=== PATIENT | male | born 1945 | race Caucasian/White ===

== ENCOUNTER 2022-07-06 15:16 | Inpatient (IN) | payer OTHER, MEDICAID ==
[~2022-07-06] VITALS: Ht 167.6 cm; Wt 76.2 kg
[2022-07-06 15:28] VITALS: BP 128/65
--- NOTE | 2022-07-06 16:00 | NUR ---
BIBA FROM HOME C/O 04/16 LEFT CHEAST PAIN , RIGHT EYE PAIN X TODAY. BLOOD SUGAR 157 AT THIS TIME. PMH: HTN, DM
--- NOTE | 2022-07-06 18:10 | NUR ---
BIB GROUND WATER PUMP INSTALLER TO ER BED 4 FROM XRAY
[2022-07-06 18:40] LABS: BASOPHILS % (AUTO) 0.7 % (0.0-2.0); EOSINOPHILS # (AUTO) 0.2 K/uL (0-0.4); EOSINOPHILS % (AUTO) 2.8 % (0.0-4.0); HEMOGLOBIN 10.2 g/dL (12.0-18.0); LYMPHOCYTES # (AUTO) 0.6 K/uL (2.0-11.5); LYMPHOCYTES % (AUTO) 9.3 % (20.5-51.1); MEAN CORPUSCULAR HEMOGLOBIN 31 pg (27-31); MEAN CORPUSCULAR HGB CONC 34 g/dL (33-37); MONOCYTES # (AUTO) 0.4 K/uL (0.8-1.0); MONOCYTES % (AUTO) 5.9 % (1.7-9.3); NEUTROPHILS # (AUTO) 5.7 K/uL (1.8-7.7); NEUTROPHILS % (AUTO) 81.3 % (42.2-75.2); PLATELET COUNT (AUTO) 260 K/uL (140-450); RED BLOOD CELL COUNT(AUTO) 3.34 MIL/uL (4.20-6.10); RED CELL DISTRIBUTION WIDTH 14.8 % (11.6-13.7)
[2022-07-06 18:56] LABS: PROTHROMBIN TIME 10.1 secs (10.8-13.4)
[2022-07-06 18:59] LABS: ALBUMIN 3.4 g/dL (3.4-5.0); ANION GAP 14.7 (8-16); ASPARTATE AMINOTRANSFERASE 20 U/L (15-37); CARBON DIOXIDE 22.8 mmol/L (21-32); CHLORIDE 104 mmol/L (98-107); CREATININE 3.6 mg/dL (0.6-1.3); GLUCOSE 158 mg/dL (74-106); POTASSIUM 5.5 mmol/L (3.5-5.1); SODIUM SERUM 136 mmol/L (136-145); TOTAL BILIRUBIN 0.5 mg/dL (0.0-1.0)
[2022-07-06 19:02] LABS: UREA NITROGEN, BLOOD 62 mg/dL (7-18)
[2022-07-06] MEDS ORDERED: NACL 0.9% 1,000 ML IV ONE (19:10)
--- NOTE | 2022-07-06 19:20 | NUR ---
IV ESTABLISHED TO RIGHT AC WITH 20G.
--- NOTE | 2022-07-06 19:22 | NUR ---
GAVE REPORT TO TRUPTI MONROY
[2022-07-06] MEDS ORDERED: CALCIUM GLUCONATE 10% 1,000 MG in NACL 0.9% 50 ML IV ONE (19:30)
[2022-07-06] MEDS ORDERED: SODIUM POLYSTYRENE 15 GM/60 ML UDBTL PO ONE (19:30)
[2022-07-06] MEDS ORDERED: CALCIUM GLUC 1 GM/50 mL NS BAG 0 ML IV ONE (19:43)
[2022-07-06] MEDS ORDERED: CALCIUM GLUC 1 GM/50 mL NS BAG 50 ML IV ONE (19:53)
[2022-07-06] MEDS ORDERED: ONDANSETRON 4 MG/2 ML VIAL IVP PRN (20:10)
[2022-07-06] MEDS ORDERED: ZOLPIDEM 10 MG TAB PO PRN (20:10)
[2022-07-06] MEDS ORDERED: LORazepam 2 MG/ML VIAL IVP PRN (20:10)
[2022-07-06] MEDS ORDERED: MAG SULF 2000 MG/WATER PREMIX 50 ML IV PRN (20:10)
[2022-07-06] MEDS ORDERED: ACETAMINOPHEN 325 MG TAB PO PRN (20:10)
[2022-07-06] MEDS ORDERED: DOCUSATE SODIUM 100 MG GELCAP PO PRN (20:10)
[2022-07-06] MEDS ORDERED: POTASSIUM CHLORIDE 10 MEQ TABER PO PRN (20:10)
[2022-07-06] MEDS ORDERED: DEXTROSE 50% 50 ML SYR IVP PRN (20:15)
--- NOTE | 2022-07-06 20:24 | NUR ---
Ultrasound at bedside.
--- NOTE | 2022-07-06 20:43 | NUR ---
US AT BEDSIDE
--- NOTE | 2022-07-06 21:01 | NUR ---
77YR OLD MALE PRESENTS C/O CP X1DAY. PT HAS HX OF CARDIAC DISEASE. ON BEDSIDE PROCESS IMPROVEMENT ENGINEER. PT WILL BE A ADMISSION. PT SKIN WARM AND DRY RESP EVEN AND UNLABORED. ON 2L O2 VIA NC. SP02 96%. HOB ELEVATED. BED AT LOWEST POSITION. PCN MDX RENAL DISEASE HTN DM CARDIAC DISEASE
[2022-07-06] MEDS: BLOOD GLUCOSE MONITORING 1 DEV DEV FS SCH (21:28)
--- NOTE | 2022-07-06 22:50 | NUR ---
REC'D REPORT FROM [facility] IN ER. PATIENT BEING ADMITTED ONTO UNIT. VENANCIO Lpóez RN
--- NOTE | 2022-07-06 23:06 | NUR ---
Chart checked and completed.
--- NOTE | 2022-07-06 23:06 | NUR ---
Patient will be admitted to care of [facility]. Admited to TELE. Will go to room11 A. Belongings list completed. Report Chanel OLIVEIRA.
--- NOTE | 2022-07-06 23:48 | NUR ---
PATIENT ARRIVED ONTO UNIT. PATIENT ORIENTED TO UNIT, VITAL SIGNS OBTAINED, MRSA SWAB COLLECTED. PATIENT RESTING COMFORTABLY, DENIES PAIN. SAFETY MEASURES IN PLACE. WILL CONTINUE TO MONITOR. VENANCIO López RN
[2022-07-07 00:14] VITALS: BP 123/59
[2022-07-07 04:00] VITALS: BP 155/72
[2022-07-07] MEDS: BLOOD GLUCOSE MONITORING 1 DEV DEV FS SCH ×4 (06:42→21:00)
[2022-07-07 06:56] LABS: BASOPHILS % (AUTO) 0.7 % (0.0-2.0); EOSINOPHILS # (AUTO) 0.3 K/uL (0-0.4); EOSINOPHILS % (AUTO) 4.9 % (0.0-4.0); HEMATOCRIT 27.3 % (36-52); HEMOGLOBIN 9.2 g/dL (12.0-18.0); LYMPHOCYTES # (AUTO) 0.8 K/uL (2.0-11.5); LYMPHOCYTES % (AUTO) 13.1 % (20.5-51.1); MEAN CORPUSCULAR HEMOGLOBIN 31 pg (27-31); MEAN CORPUSCULAR HGB CONC 34 g/dL (33-37); MEAN CORPUSCULAR VOLUME 90.5 fL (80-94); MONOCYTES # (AUTO) 0.5 K/uL (0.8-1.0); MONOCYTES % (AUTO) 7.6 % (1.7-9.3); NEUTROPHILS # (AUTO) 4.7 K/uL (1.8-7.7); NEUTROPHILS % (AUTO) 73.7 % (42.2-75.2); PLATELET COUNT (AUTO) 237 K/uL (140-450); RED BLOOD CELL COUNT(AUTO) 3.02 MIL/uL (4.20-6.10); RED CELL DISTRIBUTION WIDTH 14.7 % (11.6-13.7); WHITE BLOOD COUNT (AUTO) 6.4 K/uL (4.8-10.8)
--- NOTE | 2022-07-07 07:12 | NUR ---
BEDSIDE ENDORSEMENT TO DAY SHIFT NURSE FOR CONTINUITY OF CARE. VENANCIO López RN
[2022-07-07 07:38] LABS: ANION GAP 16.5 (8-16); CHLORIDE 106 mmol/L (98-107); CREATININE 3.3 mg/dL (0.6-1.3); GLUCOSE 115 mg/dL (74-106); POTASSIUM 4.5 mmol/L (3.5-5.1); SODIUM SERUM 139 mmol/L (136-145); UREA NITROGEN, BLOOD 53 mg/dL (7-18)
[2022-07-07 08:00] VITALS: BP 190/87
[2022-07-07] MEDS ORDERED: SODIUM ZIRCONIUM CYCLOSILICATE 10 GM POWD.PACK PO SCH (08:00)
[2022-07-07] MEDS ORDERED: hydrALAZINE 20 MG/ML VIAL IVP PRN (09:20)
--- NOTE | 2022-07-07 10:21 | NUR ---
PATIENT HAS BEEN SCREENED AND CATEGORIZED MODERATE NUTRITION RISK. PATIENT WILL BE SEEN WITHIN 3-5 DAYS OF ADMISSION. 07/06/22-07/11/[address]
[2022-07-07] MEDS: ASPIRIN 81 MG TAB.CHEW PO SCH (10:35)
--- NOTE | 2022-07-07 11:00 | NUR ---
LATE ENTRY- IV GLUCONATE DISCONTINUED AT 2306.
[2022-07-07 12:00] VITALS: BP 190/82
[2022-07-07] MEDS: INSULIN LISPRO SLIDING SCALE 100 UNITS/ML VIAL SUBQ PRN (12:52)
[2022-07-07] MEDS ORDERED: LABETALOL 100 MG/20 ML VIAL IV PRN (13:30)
[2022-07-07] MEDS ORDERED: LABETALOL 20 MG/4 ML VIAL IVP PRN (13:35)
[2022-07-07] MEDS: ISOSORBIDE DINITRATE 10 MG TAB PO SCH ×2 (13:42→22:04)
[2022-07-07] MEDS: hydrALAZINE 25 MG TAB PO SCH ×2 (13:42→22:02)
[2022-07-07] MEDS: FUROSEMIDE 40 MG/4 ML VIAL IVP SCH (13:42)
[2022-07-07 16:00] VITALS: BP 179/84
[2022-07-07 19:10] LABS: APPEARANCE,URINE CLEAR (CLEAR); BILIRUBIN,URINE NEGATIVE (NEGATIVE); BLOOD, URINE NEGATIVE (NEGATIVE); COLOR,URINE YELLOW (YELLOW); LEUKOCYTE ESTERASE ,URINE NEGATIVE (NEGATIVE); NITRITE, URINE NEGATIVE (NEGATIVE); UGLUCOSE NEGATIVE (NEGATIVE)
--- NOTE | 2022-07-07 19:42 | NUR ---
RECEIVED ENDORSEMENT FROM DAY SHIFT NURSE FOR CONTINUITY OF CARE. PT IS ON BED SLEEPING. HE IS ON CARDIAC DIET AND ON BLOOD SUGAR CHECK. IV SALINE LOCK ON RIGHT AC18G INTACT AND PATENT. SKIN INTACT. CONTINUE MONITORING.
--- NOTE | 2022-07-07 19:43 | NUR ---
ENDORSE PATIENT TO PM SHIFT NURSE WHILE PATIENT REST IN BED STABLE, PIV RAC 18G SALINE LOCK
[2022-07-07 20:00] VITALS: BP 185/85
--- NOTE | 2022-07-07 21:00 | NUR ---
BLOOD SUGAR CHECK = 96, NO SLIDING SCALE COVERAGE. PT IS SLEEPING, AWAKE WHEN NAME CALLED. NO SOB OR DISTRESS. PT DENIES OF ANY PAIN, DISCOMFORT, HEADACHE OR DIZZINESS.
[2022-07-08] VITALS: BP 167/86
--- NOTE | 2022-07-08 01:00 | NUR ---
PT IS ASLEEP AND ON STABLE CONDITION. NO SOB OR DISTRESS.
[2022-07-08 04:00] VITALS: BP 170/85
[2022-07-08] MEDS: hydrALAZINE 25 MG TAB PO SCH ×3 (05:19→21:58)
[2022-07-08] MEDS: ISOSORBIDE DINITRATE 10 MG TAB PO SCH ×4 (05:21→21:58)
--- NOTE | 2022-07-08 06:30 | NUR ---
BLOOD SUGAR CHECK = 101. NO SLIDING SCALE COVERAGE. PT DENIES ANY PAIN OR DISCOMFORT. NO SOB OR DISTRESS NOTED.
--- NOTE | 2022-07-08 07:35 | NUR ---
PT IS ON STABLE CONDITION, NO SOB OR DISTRESS. NO COMPLAINTS OF CHEST PAIN. ALL SAFETY MEASURERS ARE IN PLACE. ENDORSED TO DAY SHIFT NURSE FOR CONTINUITY OF CARE.
[2022-07-08] MEDS: BLOOD GLUCOSE MONITORING 1 DEV DEV FS SCH ×4 (07:48→21:00)
[2022-07-08 07:53] LABS: BASOPHILS # (AUTO) 0.1 K/uL (0.00-0.22); BASOPHILS % (AUTO) 1.3 % (0.0-2.0); EOSINOPHILS # (AUTO) 0.3 K/uL (0-0.4); HEMOGLOBIN 9.3 g/dL (12.0-18.0); LYMPHOCYTES % (AUTO) 16.8 % (20.5-51.1); MEAN CORPUSCULAR HEMOGLOBIN 31 pg (27-31); MEAN CORPUSCULAR HGB CONC 35 g/dL (33-37); MEAN CORPUSCULAR VOLUME 89.3 fL (80-94); MONOCYTES # (AUTO) 0.4 K/uL (0.8-1.0); MONOCYTES % (AUTO) 7.7 % (1.7-9.3); NEUTROPHILS # (AUTO) 3.9 K/uL (1.8-7.7); NEUTROPHILS % (AUTO) 69.2 % (42.2-75.2); PLATELET COUNT (AUTO) 273 K/uL (140-450); RED BLOOD CELL COUNT(AUTO) 3.02 MIL/uL (4.20-6.10); RED CELL DISTRIBUTION WIDTH 14.7 % (11.6-13.7); WHITE BLOOD COUNT (AUTO) 5.7 K/uL (4.8-10.8)
--- NOTE | 2022-07-08 07:55 | NUR ---
RECEIVE ENDORSEMENT FROM PM SHIFT NURSE WHILE PATIENT REST IN BED STABLE, PIV RAC 18G SALINE LOCK; WILL CONTINUE TO MONITOR
[2022-07-08 08:00] VITALS: BP 187/84
[2022-07-08 08:26] LABS: ANION GAP 16.9 (8-16); CARBON DIOXIDE 22.1 mmol/L (21-32); CHLORIDE 105 mmol/L (98-107); CREATININE 3.1 mg/dL (0.6-1.3); GLUCOSE 106 mg/dL (74-106); SODIUM SERUM 140 mmol/L (136-145); UREA NITROGEN, BLOOD 49 mg/dL (7-18)
[2022-07-08] MEDS: ASPIRIN 81 MG TAB.CHEW PO SCH (09:19)
[2022-07-08] MEDS: FUROSEMIDE 40 MG/4 ML VIAL IVP SCH ×2 (09:20→17:23)
[2022-07-08] MEDS: TAMSULOSIN 0.4 MG CAP PO SCH (09:20)
[2022-07-08] MEDS ORDERED: NIFEdipine 60 MG TABER PO SCH (09:45)
[2022-07-08] MEDS: INSULIN LISPRO SLIDING SCALE 100 UNITS/ML VIAL SUBQ PRN (11:59)
[2022-07-08 12:00] VITALS: BP 183/84
--- NOTE | 2022-07-08 12:00 | NUR ---
DISCHARGE PLANNING : PATIENT IS A 77 YEAR OLD MALE ADMITTED IN THE [facility]/ED ON 07/06/2022. DUE TO COMPLAINTS OF CHEST PAIN IN LEFT SIDED AREA FOR ABOUT A DAY. PATIENT HAS MEDICAL HISTORY OF HYPERTENSION, DIABETES AND CAD/S/P CABG. (PATIENT PREFERS TO SPEAK HONG KONGER ONLY). SW MEET WITH PATIENT AT BEDSIDE TO DISCUSS AND GATHER HIS COLLATERAL INFORMATION , PATIENT WAS AWAKE AND ALERT AT THE TIME OF THE VISIT HE WAS ABLE TO PROVIDE ALL HIS INFORMATION. PATIENT REPORTED LIVING AT HOME WITH HIS SISTER KYRA GAYTAN AND HIS COUSIN SALAZAR BENDER IN THEIR HOME IN [facility]. PER PATIENT HE HAS GOOD FAMILY SUPPORT AND REPORTED NOT HAVING A.D. PATIENT DID NOT WANT INF. FORMS PROVIDED BY SW. PATIENT STATED THAT HIS EMERGENCY CONTACT AND MEDICAL DECISION MAKER IS HIS SISTER KYRA GAYTAN . PATIENT REPORTED NOT HAVING A PCP AND GOING TO A CLINIC IN [place] WHEN HE IS NOT FEELING WELL OR WHEN HE IS REALLY SICK THEN PATIENT REPORTED GOING TO THE HOSPITAL FOR CARE. SW DISCUSS WITH PATIENT THE IMPORTANCE OF FOLLOWING UP WITH PCP IN REGULAR BASIS; SW PROVIDED PATIENT WITH A LIST OF LOW COST CLINICS AND PROVIDER IN THE AREA OF [place] PATIENT THANKED SW FOR THE INFORMATION AND REPORTED THAT HE WILL UTILIZED THE RESOURCES PROVIDES AND HE OR HIS SISTER WILL BE MAKING A FOLLOW UP APPOINTMENT FOR HIM AFTER HE IS DISCHARGE. PATIENT DECLINED FOR SW TO MAKE A FOLLOW UP APPOINTMENT. PATIENT STATED THAT HE HAS NO ISSUES GETTING HIS MEDICATIONS AND IS BEEN ASSISTED BY HIS SISTER KYRA TO GET AND TAKE HIS MEDICATIONS DUE TO SOMETIMES FORGETTING TO TAKE THEM. PER PATIENT HE HAS NO DME AND HE STILL INDEPENDENT. PER PATIENT HE WANTS TO RETURN BACK HOME WITH HIS FAMILY AND HIS SISTER KYRA WILL BE PICKING HIM UP FROM [facility] WHEN HE IS READY AND STABLE TO DISCHARGE. PATIENT REPORTED THAT HE IS OPEN TO DOCTORS RECOMMENDATIONS HOWEVER; DO RATHER TO GO HOME WITH FAMILY. SW/ CM WILL FOLLOW UP NEEDED.
[2022-07-08 16:00] VITALS: BP 128/62
--- NOTE | 2022-07-08 19:26 | NUR ---
RECEIVED ENDORSEMENT FROM DAY SHIFT NURSE FOR CONTINUITY OF CARE. PT IS ON BED SLEEPING. PT CONTINUE WITH CARDIAC DIET AND ON BLOOD SUGAR CHECK. IV SALINE LOCK ON RIGHT AC18G INTACT AND PATENT. SKIN INTACT. NO NOTED ANY FACIAL GRIMACING. CONTINUE MONITORING.
--- NOTE | 2022-07-08 19:26 | NUR ---
RECEIVED ENDORSEMENT FROM DAY SHIFT NURSE FOR CONTINUITY OF CARE. PT IS AWAKE, ALERT AND VERBALLY RESPONSIVE. PT IS ON BED CLOSING HIS EYES. DINNER IS ON BED SIDE TABLE UNTOUCHED. PT STATED HE DOES NOT FEEL HUNGRY. IV SALINE LOCK ON RIGHT AC INTACT AND PATENT. PT IS AMBULATORY. CONTINUE TO MONITOR.
--- NOTE | 2022-07-08 19:27 | NUR ---
ENDORSEMENT PATIENT TO PM SHIFT NURSE WHILE PATIENT REST IN BED IN STABLE CONDITION, PIV RAC SALINE LOCK. POSSIBLE DISCHARGE SOON.
[2022-07-08 20:00] VITALS: BP 116/59
--- NOTE | 2022-07-08 21:00 | NUR ---
BLOOD SUGAR CHECK = 130, NO SLIDING SCALE COVERAGE FOR INSULIN.
--- NOTE | 2022-07-08 23:00 | NUR ---
PT REQUESTED TO HAVE COFFEE AND HE WANTS TO EAT HIS MEAL ON THE TRAY.
[2022-07-09] VITALS: BP 123/58
[2022-07-09 04:00] VITALS: BP 136/64
[2022-07-09] MEDS: hydrALAZINE 25 MG TAB PO SCH ×3 (05:06→21:20)
[2022-07-09 07:03] LABS: BASOPHILS % (AUTO) 0.6 % (0.0-2.0); EOSINOPHILS # (AUTO) 0.1 K/uL (0-0.4); HEMATOCRIT 24.9 % (36-52); HEMOGLOBIN 8.6 g/dL (12.0-18.0); LYMPHOCYTES # (AUTO) 1.1 K/uL (2.0-11.5); LYMPHOCYTES % (AUTO) 15.3 % (20.5-51.1); MEAN CORPUSCULAR HEMOGLOBIN 31 pg (27-31); MEAN CORPUSCULAR HGB CONC 34 g/dL (33-37); MEAN CORPUSCULAR VOLUME 89.6 fL (80-94); MONOCYTES # (AUTO) 0.5 K/uL (0.8-1.0); MONOCYTES % (AUTO) 6.5 % (1.7-9.3); NEUTROPHILS # (AUTO) 5.4 K/uL (1.8-7.7); NEUTROPHILS % (AUTO) 76.6 % (42.2-75.2); PLATELET COUNT (AUTO) 258 K/uL (140-450); RED BLOOD CELL COUNT(AUTO) 2.78 MIL/uL (4.20-6.10); RED CELL DISTRIBUTION WIDTH 14.6 % (11.6-13.7); WHITE BLOOD COUNT (AUTO) 7.1 K/uL (4.8-10.8)
[2022-07-09 07:10] LABS: ANION GAP 15.3 (8-16); CARBON DIOXIDE 22.5 mmol/L (21-32); CHLORIDE 104 mmol/L (98-107); CREATININE 3.5 mg/dL (0.6-1.3); GLUCOSE 121 mg/dL (74-106); POTASSIUM 3.8 mmol/L (3.5-5.1); SODIUM SERUM 138 mmol/L (136-145)
[2022-07-09 07:25] LABS: UREA NITROGEN, BLOOD 50 mg/dL (7-18)
[2022-07-09 08:00] VITALS: BP 152/63
[2022-07-09] MEDS: BLOOD GLUCOSE MONITORING 1 DEV DEV FS SCH ×4 (09:00→21:32)
[2022-07-09] MEDS: LABETALOL 200 MG TAB PO SCH ×2 (09:09→21:20)
[2022-07-09] MEDS: TAMSULOSIN 0.4 MG CAP PO SCH (09:09)
[2022-07-09] MEDS: ASPIRIN 81 MG TAB.CHEW PO SCH (09:10)
[2022-07-09] MEDS: NIFEdipine 90 MG TABER PO SCH (09:10)
[2022-07-09] MEDS: FUROSEMIDE 40 MG/4 ML VIAL IVP SCH ×2 (09:11→17:43)
[2022-07-09 12:00] VITALS: BP 139/66
[2022-07-09] MEDS: ISOSORBIDE DINITRATE 10 MG TAB PO SCH ×2 (13:44→21:20)
[2022-07-09 16:00] VITALS: BP 91/43
--- NOTE | 2022-07-09 16:19 | NUR ---
P.T. NOTES P.T. EVAL COMPLETED; REFER TO EVAL FOR DETAILS.
[2022-07-09] MEDS: INSULIN LISPRO SLIDING SCALE 100 UNITS/ML VIAL SUBQ PRN (17:44)
--- NOTE | 2022-07-09 19:30 | NUR ---
RECEIVED REPORT FROM DAY SHIFT NURSE MATHEUS FOR CONTINUITY OF CARE. PATIENT IS A&O X4, TURKISH SPEAKING. PATIENT IS ON ROOM AIR, BREATHING IS NORMAL WITH SYMMETRICAL RISE AND FALL OF CHEST. PATIENT'S IV IS AN 18G RAC, NO FLUIDS RUNNING AT THIS TIME (SALINE LOCKED). PATIENT IS SITTING UP IN BED WITH FEET DANGLING ON THE SIDE. ASKED PATIENT IF HE WAS OK, PATIENT STATED HE WAS GOOD. BED IS IN LOWEST POSITION, WHEELS LOCKED, CALL LIGHT IN PLACE. WILL CONTINUE TO OBSERVE PATIENT.
[2022-07-09 20:00] VITALS: BP 103/57
--- NOTE | 2022-07-09 21:35 | NUR ---
ENTERED ROOM TO ADMINISTER 2100 MEDICATIONS. PATIENT WAS SLEEPING, LYING SUPINE IN BED AND COMPLETELY COVERED UP WITH BLANKET. WOKE PATIENT UP, AND INFORMED HIM OF MEDICATIONS THAT NEEDED TO BE GIVEN. ADMINISTERED 2100 MEDICATIONS TO PATIENT. PATIENT TOLERATED MEDICATIONS WELL WITHOUT ANY DIFFICULTIES. PATIENT'S BS WAS OBTAINED; BS WAS 123, NO COVERAGE WAS NEEDED. PATIENT LAID BACK DOWN TO GO BACK TO SLEEP AFTER MEDS WERE COMPLETE. BREATHING IS NORMAL WITH SYMMETRICAL RISE AND FALL OF CHEST. BED IS IN LOWEST POSITION, WHEELS LOCKED AND CALL LIGHT IN PLACE. WILL CONTINUE TO OBSERVE PATIENT.
--- NOTE | 2022-07-09 23:00 | NUR ---
LOOKED IN ON PATIENT. PATIENT WAS SLEEPING, LYING SUPINE WITH BLANKET PULLED UP PAST SHOULDERS. BREATHING WAS NORMAL WITH SYMMETRICAL RISE AND FALL OF CHEST. NO IV FLUIDS WERE RUNNING AT THIS TIME. WILL CONTINUE TO OBSERVE PATIENT.
[2022-07-10] VITALS (12 sets, daily range): BP systolic 77–134; BP diastolic 31–62
--- NOTE | 2022-07-10 00:20 | NUR ---
LOOKED IN ON PATIENT. PATIENT WAS SLEEPING, LYING SUPINE. BREATHING WAS NORMAL WITH SYMMETRICAL RISE AND FALL OF CHEST. BED WAS IN LOWEST POSITION WITH WHEELS LOCKED AND CALL LIGHT IN PLACE. WILL CONTINUE TO OBSERVE PATIENT.
--- NOTE | 2022-07-10 02:30 | NUR ---
LOOKED IN ON PATIENT. PATIENT WAS SLEEPING, LYING SUPINE WITH BLANKET OVER HEAD. CHECKED ON PATIENT, PATIENT WAS BREATHING NORMALLY WITH SYMMETRICAL RISE AND FALL OF CHEST. BED WAS IN LOWEST POSITION, WHEELS LOCKED, CALL LIGHT IN PLACE. WILL CONTINUE TO OBSERVE PATIENT.
--- NOTE | 2022-07-10 04:50 | NUR ---
LOOKED IN ON PATIENT. PATIENT WAS SLEEPING, LYING SUPINE WITH BLANKET PULLED OVER HEAD. ASSESSED PATIENT, PATIENT WAS BREATHING NORMALLY WITH SYMMETRICAL RISE AND FALL OF CHEST. WILL CONTINUE TO OBSERVE PATIENT.
[2022-07-10] MEDS: ISOSORBIDE DINITRATE 10 MG TAB PO SCH ×2 (05:43→12:59)
[2022-07-10] MEDS: hydrALAZINE 25 MG TAB PO SCH ×2 (05:44→12:58)
--- NOTE | 2022-07-10 05:50 | NUR ---
ENTERED ROOM TO ADMINISTER 0500 MEDICATIONS. PATIENT WAS SLEEPING WITH BLANKET OVER HEAD. WOKE PATIENT UP AND ADMINISTERED 0500 MEDICATION TO HIM. PATIENT TOLERATED MEDICATION WELL WITHOUT DIFFICULTY. BREATHING WAS NORMAL WITH SYMMETRICAL RISE AND FALL OF CHEST. BED WAS IN LOWEST POSITION, WHEELS LOCKED, CALL LIGHT IN PLACE. WILL CONTINUE TO OBSERVE PATIENT.
[2022-07-10 07:11] LABS: ANION GAP 14.8 (8-16); CARBON DIOXIDE 23.2 mmol/L (21-32); CHLORIDE 105 mmol/L (98-107); CREATININE 3.8 mg/dL (0.6-1.3); GLUCOSE 119 mg/dL (74-106); SODIUM SERUM 139 mmol/L (136-145); UREA NITROGEN, BLOOD 52 mg/dL (7-18)
[2022-07-10 07:19] LABS: BASOPHILS % (AUTO) 0.7 % (0.0-2.0); EOSINOPHILS # (AUTO) 0.1 K/uL (0-0.4); EOSINOPHILS % (AUTO) 2.2 % (0.0-4.0); HEMOGLOBIN 7.9 g/dL (12.0-18.0); LYMPHOCYTES % (AUTO) 21.8 % (20.5-51.1); MEAN CORPUSCULAR HEMOGLOBIN 31 pg (27-31); MEAN CORPUSCULAR HGB CONC 35 g/dL (33-37); MEAN CORPUSCULAR VOLUME 88.9 fL (80-94); MONOCYTES # (AUTO) 0.4 K/uL (0.8-1.0); MONOCYTES % (AUTO) 8.1 % (1.7-9.3); NEUTROPHILS # (AUTO) 3.2 K/uL (1.8-7.7); NEUTROPHILS % (AUTO) 67.2 % (42.2-75.2); PLATELET COUNT (AUTO) 243 K/uL (140-450); RED BLOOD CELL COUNT(AUTO) 2.59 MIL/uL (4.20-6.10); RED CELL DISTRIBUTION WIDTH 14.6 % (11.6-13.7); WHITE BLOOD COUNT (AUTO) 4.7 K/uL (4.8-10.8)
--- NOTE | 2022-07-10 07:45 | NUR ---
ENDORSED TO DAY SHIFT NURSE LORENA FOR CONTINUITY OF CARE. PATIENT IS STABLE.
[2022-07-10] MEDS: BLOOD GLUCOSE MONITORING 1 DEV DEV FS SCH ×4 (07:54→21:28)
--- NOTE | 2022-07-10 08:00 | NUR ---
OBTAINED PATIENT'S BS; BS WAS 114, NO COVERAGE NEEDED. HAVE ENDORSED TO DAY SHIFT NURSE LORENA FOR CONTINUITY OF CARE.
[2022-07-10] MEDS ORDERED: LABETALOL 100 MG TAB PO SCH (09:00)
[2022-07-10] MEDS: TAMSULOSIN 0.4 MG CAP PO SCH (09:08)
[2022-07-10] MEDS: FUROSEMIDE 40 MG/4 ML VIAL IVP SCH (09:08)
[2022-07-10] MEDS: NIFEdipine 90 MG TABER PO SCH (09:09)
[2022-07-10] MEDS: ASPIRIN 81 MG TAB.CHEW PO SCH (09:09)
[2022-07-10] MEDS ORDERED: ASPI81CT95 PO (10:52)
[2022-07-10] MEDS ORDERED: HYDR-4420 PO (10:52)
[2022-07-10] MEDS ORDERED: TRA100 PO (10:52)
[2022-07-10] MEDS ORDERED: TAMS0.4C96 PO (10:52)
[2022-07-10] MEDS ORDERED: ISOS10TA9 PO (10:52)
[2022-07-10] MEDS ORDERED: NIFE90TE63 PO (10:52)
[2022-07-10] MEDS ORDERED: FURO40TA9 PO (10:53)
[2022-07-10] MEDS: INSULIN LISPRO SLIDING SCALE 100 UNITS/ML VIAL SUBQ PRN ×2 (11:52→16:32)
--- NOTE | 2022-07-10 13:00 | NUR ---
PATIENT BLOOD PRESSURE 83/36 WITH HEART RATE OF 63. DR. RENDON CALLED AND NOTIFIED. ORDERS GIVEN TO GIVE NS 1 LITER IV BOLUS, HOLD BP MEDS AND DISCHARGE. HYDRALAZINE 100MG PO AND ISOSORBIDE 140MG PO HELD ORDERED. PATIENT ASYMPTOMATIC.
[2022-07-10] MEDS ORDERED: NACL 0.9% 1,000 ML IV SCH (13:10)
--- NOTE | 2022-07-10 15:05 | NUR ---
PATIENT'S BLOOD PRESSURE 82/35 WITH HEART RATE OF 59. DR. RENDON CALLED AND NOTIFIED. ORDERS GIVEN TO TRANSFER TO ICU AND START PATIENT ON LEVOPHED DRIP. SUPERVISOR BROODER [employer]ARM AND CHARGE NURSE NOTIFIED. Radha LOZADA RN.
--- NOTE | 2022-07-10 15:10 | NUR ---
DR. MCCLAIN CALLED AND NOTIFIED OF PATIENT'S STATUS AND TRANSFER TO ICU. Radha LOZADA RN.
--- NOTE | 2022-07-10 15:20 | NUR ---
PHYSICAL THERAPY NOTE: ATTEMPTED TO SEE PATIENT FOR PHYSICAL THERAPY TREATMENT HOWEVER PER RN PATIENT IS HYPOTENSIVE AT THIS TIME AND NOT APPROPRIATE FOR REHAB. WILL BE TRANSFERRED TO ICU; WILL FOLLOW UP WHEN PATIENT IS APPROPRIATE TO CONTINUE REHAB SERVICES.
[2022-07-10] MEDS ORDERED: NOREPINEPHRINE 4 MG in DEXTROSE 5% 250 ML IV PRN (15:25)
--- NOTE | 2022-07-10 15:38 | NUR ---
PATIENT TRANSFERRED TO ICU VIA BED. REPORT GIVEN TO TEE BELL.
--- NOTE | 2022-07-10 15:40 | NUR ---
RECEIVED REPORT FROM LORENA, AUTOMATIC SPINNING LATHE SETTER. PT TRANSFERRED TO ICU BED 7. BP 81/49. A/OX4, KENYAN SPEAKING ONLY. TEMP 98.0. LETHARGIC. SR ON MONITOR. 20G IV TO RAC SALINE LOCK. NO EDEMA NOTED. CARDIAC DIET. CONTINENT OF BOWEL AND BLADDER. SELF TURN. STANDARD PRECAUTION. CALL LIGHT WITHIN REACH, BED LOCKED AND IN LOWEST POSITION.
--- NOTE | 2022-07-10 15:55 | NUR ---
INSERTED 18G IV TO L FA. PT TOLERATED WELL. GOOD BLOOD RETURN.
--- NOTE | 2022-07-10 19:28 | NUR ---
ENDORSED BEDSIDE REPORT TO QUINCY RN FOR CONTINUITY OF CARE. VSS.
--- NOTE | 2022-07-10 19:30 | NUR ---
RECEIVED REPORT FROM AM SHIFT TEE IVORY. PT ALERT AND ORIENTED X4. PT ABLE TO MAKE NEEDS KNOWN IN [place]. PT ON ROOM AIR. CARDIAC/ RENAL DIET. SR TO BEDSIDE MONITOR. PERIPHERAL IV ACCESS TO RAC 20 GAUGE. 18 GAUGE TO LEFT FOREARM 18 GAUGE WHERE LEVO CONTINOUS DRIP IS RUNNING AT MCG/MIN. PT DENIES PAIN. SKIN IS INTACT.
[2022-07-10] MEDS ORDERED: carvediloL 6.25 MG TAB PO SCH (21:00)
--- NOTE | 2022-07-10 21:40 | NUR ---
BS 123.
[2022-07-11] VITALS (20 sets, daily range): BP systolic 129–198; BP diastolic 59–83
--- NOTE | 2022-07-11 | NUR ---
PT ABLE TO USE URINAL. OUTPUT 200 ml.
--- NOTE | 2022-07-11 02:31 | NUR ---
PT WATCHING TV. BREATHING EVEN AND UNLABORED.
[2022-07-11 05:50] LABS: BASOPHILS % (AUTO) 0.8 % (0.0-2.0); EOSINOPHILS # (AUTO) 0.3 K/uL (0-0.4); EOSINOPHILS % (AUTO) 4.6 % (0.0-4.0); HEMATOCRIT 22.9 % (36-52); HEMOGLOBIN 7.7 g/dL (12.0-18.0); LYMPHOCYTES # (AUTO) 1.2 K/uL (2.0-11.5); LYMPHOCYTES % (AUTO) 19.8 % (20.5-51.1); MEAN CORPUSCULAR HEMOGLOBIN 30 pg (27-31); MEAN CORPUSCULAR HGB CONC 34 g/dL (33-37); MEAN CORPUSCULAR VOLUME 89.7 fL (80-94); MONOCYTES # (AUTO) 0.5 K/uL (0.8-1.0); MONOCYTES % (AUTO) 9.1 % (1.7-9.3); NEUTROPHILS # (AUTO) 3.8 K/uL (1.8-7.7); NEUTROPHILS % (AUTO) 65.7 % (42.2-75.2); PLATELET COUNT (AUTO) 242 K/uL (140-450); RED BLOOD CELL COUNT(AUTO) 2.55 MIL/uL (4.20-6.10); RED CELL DISTRIBUTION WIDTH 14.8 % (11.6-13.7); WHITE BLOOD COUNT (AUTO) 5.9 K/uL (4.8-10.8)
[2022-07-11 06:40] LABS: ANION GAP 16.7 (8-16); CARBON DIOXIDE 20.3 mmol/L (21-32); CHLORIDE 103 mmol/L (98-107); GLUCOSE 136 mg/dL (74-106); SODIUM SERUM 136 mmol/L (136-145); UREA NITROGEN, BLOOD 53 mg/dL (7-18)
[2022-07-11 06:41] LABS: CREATININE 4.1 mg/dL (0.6-1.3)
--- NOTE | 2022-07-11 07:30 | NUR ---
RECEIVED REPORT FROM CHANGE NURSE UPON ARRIVAL
--- NOTE | 2022-07-11 07:33 | NUR ---
REPORT GIVEN TO AM SHIFT RN OMAR
[2022-07-11] MEDS: BLOOD GLUCOSE MONITORING 1 DEV DEV FS SCH ×4 (08:12→20:38)
[2022-07-11] MEDS: TAMSULOSIN 0.4 MG CAP PO SCH (08:20)
[2022-07-11] MEDS: ASPIRIN 81 MG TAB.CHEW PO SCH (08:20)
[2022-07-11] MEDS ORDERED: FUROSEMIDE 40 MG TAB PO SCH (09:00)
[2022-07-11] MEDS: FUROSEMIDE 40 MG TAB PO SCH ×2 (09:12→17:40)
--- NOTE | 2022-07-11 10:00 | NUR ---
PATIENT WANTS TO BE DISCHARGED HOME, REQUEST TO CALL SISTER AND TALK WITH HER ON TELEPHONE. MADE SEVERAL ATTEMPTS TO CALL SISTER WITH NO ANSWER. WILL FOLLOW UP PATIENT REQUEST.
[2022-07-11] MEDS: INSULIN LISPRO SLIDING SCALE 100 UNITS/ML VIAL SUBQ PRN ×2 (11:56→20:40)
--- NOTE | 2022-07-11 12:00 | NUR ---
NOTIFIED SISTER VIA TELEPHONE, PATIENT ABLE TO TALK TO BROTHER ON TELEPHONE. SISTER INQUIRING POSSIBLE DISCHARGE HOME, MD STATED POSSIBLE DISCHARGE TOMORROW AFTER EVALUATING BLOOD PRESSURE MEDICATION.
--- NOTE | 2022-07-11 14:00 | NUR ---
PT AT BEDSIDE, PATIENT ABLE TO AMBULATE IN HALLWAY WITH STAND BY ASSISTANCE. PATIENT TOLERATED WELL. NO SHORTNESS BREATH.
--- NOTE | 2022-07-11 16:00 | NUR ---
PATIENT IN BED WATCHING TV. DENIES COMPLAINTS OF PAIN. INQUIRING REGARDING DISCHARGE TO HOME. EXPLAIN VIA ITALIAN PATIENT WILL BE RESTARTING BLOOD PRESSURE MEDICATION AND WILL BE MONITORED DURING ARC WELDER APPRENTICE.
--- NOTE | 2022-07-11 16:59 | NUR ---
07/11/22 RD INITIAL ASSESSMENT COMPLETED PLEASE REFER TO NUTRITION ASSESSMENT UNDER CARE ACTIVITY FOR ESTIMATED NUTRITIONAL NEEDS. 1. CONTINUE CARDIAC, RENAL DIET TOLERATED. -ADD [id number] DIET. 2. PROVIDED CHF NUTRITION EDUCATION WITH HANDOUTS. 3. RD TO FOLLOW-UP 7 DAYS, LOW RISK REVIEWED BY CHUN ROSSI RD
--- NOTE | 2022-07-11 19:00 | NUR ---
TRANSFERRED TO AL TELE ROOM 121B
--- NOTE | 2022-07-11 19:20 | NUR ---
REPORT GIVEN TO MITRA OLIVEIRAACID TREATER NURSE.
--- NOTE | 2022-07-11 19:21 | NUR ---
RECEIVED REPORT FROM ICU NURSE FARHAD. PATIENT AWAKE ALERT WELL RESTED ON ROOM AIR WATCHING TV. NO S/S OF RESPIRATORY DISTRESS. BREATHING NORMAL NON LABORED. ABLE TO AMBULATE. ALL SAFETY PRECAUTIONS ARE IN PLACE. CALL LIGHT WITHIN REACH.
[2022-07-11] MEDS: hydrALAZINE 25 MG TAB PO SCH (20:34)
--- NOTE | 2022-07-11 20:34 | NUR ---
ALL SCHEDULED MEDICATIONS ADMINISTERED. TOLERATED WELL.
[2022-07-11] MEDS: ISOSORBIDE DINITRATE 10 MG TAB PO SCH (20:35)
[2022-07-11] MEDS: carvediloL 6.25 MG TAB PO SCH (20:35)
[2022-07-12] VITALS: BP 163/75
[2022-07-12] MEDS: hydrALAZINE 25 MG TAB PO SCH ×3 (05:06→20:19)
[2022-07-12] MEDS: ISOSORBIDE DINITRATE 10 MG TAB PO SCH ×3 (05:07→20:15)
--- NOTE | 2022-07-12 05:16 | NUR ---
PATIENT SLEEPING, BREATHING NORMAL WITH SYMMETRICAL RISE AND FALL OF THE CHEST. CALL LIGHT WITHIN REACH.
[2022-07-12] MEDS: BLOOD GLUCOSE MONITORING 1 DEV DEV FS SCH ×4 (06:32→19:44)
--- NOTE | 2022-07-12 06:33 | NUR ---
BLOOD SUGAR CHECKED WAS 102 NO INSULIN COVERAGE NEEDED.
--- NOTE | 2022-07-12 07:10 | NUR ---
RECEIVED REPORT FROM GERIATRIC ASSISTANT NURSE MITRA FOR CONTINUITY OF CARE. NO SIGNS OF DISRESS OR LABORED BREATHING. A&OX1-2, ON ROOM AIR, AND SKIN INTACT. PT HAS A 20G IV IN HIS R AC AND AN 18G IN HIS L FOREARM THAT ARE PATENT, INTACT AND SALINE LOCKED AT THIS TIME. PT AMBULATES TO THE REST ROOM ON HIS OWN WITH STEADY GAIT. BED IN LOW POSITION, TWO SIDE RAILS UP, CALL LIGHT WITHIN REACH, AND ALL SAFETY MEASURE IN PLACE AT THIS TIME. WILL CONTINUE TO MONITOR.
--- NOTE | 2022-07-12 07:15 | NUR ---
ENDORSED PATIENT TO MORNING SHIFT NURSE PIO FOR CONTINUITY OF CARE.
[2022-07-12 08:00] VITALS: BP 154/75
[2022-07-12] MEDS: TAMSULOSIN 0.4 MG CAP PO SCH (09:02)
[2022-07-12] MEDS: ASPIRIN 81 MG TAB.CHEW PO SCH (09:03)
[2022-07-12] MEDS: FUROSEMIDE 40 MG TAB PO SCH (09:03)
[2022-07-12] MEDS: carvediloL 6.25 MG TAB PO SCH ×2 (09:04→20:12)
[2022-07-12 16:00] VITALS: BP 155/70
[2022-07-12] MEDS ORDERED: NACL 0.9% 500 ML IV SCH (16:45)
[2022-07-12] MEDS: INSULIN LISPRO SLIDING SCALE 100 UNITS/ML VIAL SUBQ PRN ×2 (16:58→20:23)
[2022-07-12 17:42] LABS: ALBUMIN 2.7 g/dL (3.4-5.0); ASPARTATE AMINOTRANSFERASE 16 U/L (15-37); CREATININE 3.2 mg/dL (0.6-1.3); GLUCOSE 159 mg/dL (74-106); IRON, SERUM 50 ug/dl (50-175); TOTAL BILIRUBIN 0.3 mg/dL (0.0-1.0); TOTAL IRON BINDING CAPACITY 178 ug/dl (250-450); UREA NITROGEN, BLOOD 47 mg/dL (7-18)
[2022-07-12] MEDS ORDERED: NACL 0.9% 250 ML IV ONE (17:55)
[2022-07-12 18:01] LABS: ANION GAP 13.4 (8-16); CHLORIDE 102 mmol/L (98-107); POTASSIUM 4.4 mmol/L (3.5-5.1); SODIUM SERUM 134 mmol/L (136-145)
--- NOTE | 2022-07-12 19:10 | NUR ---
ENDORSED PT TO AUDIENCE DEVELOPMENT MANAGER NURSE BLAIR OLIVEIRA AND DARIEN OLIVEIRA FOR CONTINUITY OF CARE.
[2022-07-13 02:56] VITALS: BP 140/67
[2022-07-13 04:10] VITALS: BP 146/70
[2022-07-13] MEDS: ISOSORBIDE DINITRATE 10 MG TAB PO SCH (04:12)
[2022-07-13] MEDS: hydrALAZINE 25 MG TAB PO SCH (04:14)
[2022-07-13] MEDS: BLOOD GLUCOSE MONITORING 1 DEV DEV FS SCH (06:20)
--- NOTE | 2022-07-13 06:46 | NUR ---
REPORT GIVEN TO DAY SHIFT RN FOR CONTINUITY OF CARE FOR DAY SHIFT.
[2022-07-13] MEDS: carvediloL 6.25 MG TAB PO SCH (08:58)
[2022-07-13] MEDS: TAMSULOSIN 0.4 MG CAP PO SCH (08:58)
[2022-07-13] MEDS: ASPIRIN 81 MG TAB.CHEW PO SCH (08:58)
[2022-07-13] MEDS ORDERED: EPOETIN ALFA-EPBX 10,000 UNITS/ML VIAL IV SCH (09:00)
[2022-07-13 09:51] LABS: BASOPHILS # (AUTO) 0.1 K/uL (0.00-0.22); BASOPHILS % (AUTO) 0.9 % (0.0-2.0); EOSINOPHILS # (AUTO) 0.2 K/uL (0-0.4); EOSINOPHILS % (AUTO) 3.5 % (0.0-4.0); HEMOGLOBIN 8.6 g/dL (12.0-18.0); LYMPHOCYTES % (AUTO) 14.7 % (20.5-51.1); MEAN CORPUSCULAR HEMOGLOBIN 31 pg (27-31); MEAN CORPUSCULAR HGB CONC 34 g/dL (33-37); MEAN CORPUSCULAR VOLUME 89.4 fL (80-94); MONOCYTES # (AUTO) 0.6 K/uL (0.8-1.0); MONOCYTES % (AUTO) 8.7 % (1.7-9.3); NEUTROPHILS # (AUTO) 4.9 K/uL (1.8-7.7); NEUTROPHILS % (AUTO) 72.2 % (42.2-75.2); PLATELET COUNT (AUTO) 266 K/uL (140-450); RED CELL DISTRIBUTION WIDTH 14.2 % (11.6-13.7); WHITE BLOOD COUNT (AUTO) 6.8 K/uL (4.8-10.8)
[2022-07-13 10:03] LABS: CARBON DIOXIDE 21.5 mmol/L (21-32); CREATININE 3.1 mg/dL (0.6-1.3); GLUCOSE 116 mg/dL (74-106); UREA NITROGEN, BLOOD 46 mg/dL (7-18)
--- NOTE | 2022-07-13 11:15 | NUR ---
PT REQUESTING TO LEAVE. NOTIFIED THE DR OF THE PTS DECISION AND PROVIDED PT WITH AMA FORM. USED A SPORT INTERN TO EXPLAIN WHAT HE WAS DECIDING AND IF HE UNDERSTOOD WHAT THAT MEANT; PT SAID HE DID UNDERSTAND. REMOVED BOTH IVS AND ID BAND. PTS VITALS WERE STABLE.
[2022-07-13 11:37] LABS: ANION GAP 14.7 (8-16); CHLORIDE 104 mmol/L (98-107); POTASSIUM 4.2 mmol/L (3.5-5.1); SODIUM SERUM 136 mmol/L (136-145)
== END 2022-07-13 13:51 | disposition left against medical advice (07) | DRG 291 ==
LOC: MED 15:16 → MTU 20:05 → MIC 07-10 15:30 → MTU 07-11 18:44
PROVIDERS: ADMIT Family Medicine; ATTEND Family Medicine
DX: I13.0 Hypertensive heart and chronic kidney disease with heart failure and stage 1 through stage 4 chronic kidney disease, or unspecified chronic kidney disease (principal); I50.43 Acute on chronic combined systolic (congestive) and diastolic (congestive) heart failure; N17.0 Acute kidney failure with tubular necrosis; N18.4 Chronic kidney disease, stage 4 (severe); I42.9 Cardiomyopathy, unspecified; I16.0 Hypertensive urgency; I25.10 Atherosclerotic heart disease of native coronary artery without angina pectoris; E86.0 Dehydration; E83.51 Hypocalcemia; E78.5 Hyperlipidemia, unspecified; E11.22 Type 2 diabetes mellitus with diabetic chronic kidney disease; D63.8 Anemia in other chronic diseases classified elsewhere; E83.42 Hypomagnesemia; Z20.822 Contact with and (suspected) exposure to COVID-19; Z95.1 Presence of aortocoronary bypass graft; Z88.0 Allergy status to penicillin
CPT/HCPCS: 36415; 71045; 76770; 80048; 80053; 81003; 82570; 82728; 82948; 83540; 83735; 83880; 84300; 84484; 85025; 85610; 85730; 87081; 93005; 96365; 97112; 97116; 97530; 99285; J0360; J0610; J1940; J3475; J3490; J7060; Q0092